=== PATIENT | female | born 1950 | race Caucasian/White ===

== ENCOUNTER 2016-10-24 20:33 | Emergency (ER) | payer MEDICAID, OTHER ==
[~2016-10-24] VITALS: Ht 152.4 cm; Wt 63.0 kg
[~2016-10-24 20:33] MED LIST: AZIT250T94 PO
[2016-10-24 20:52] VITALS: Ht 152.4 cm; Wt 63.0 kg
[2016-10-25] MEDS ORDERED: CARB15DR50 BOTH EARS (02:40)
--- NOTE | 2016-10-25 02:40 | ERD ---
ER Documentation Chief Complaint Date/Time DATE: 10/24/16 Chief Complaint Cerumen impaction HPI The patient is a 66-year-old female who presents to the Emergency Department with complaint of cerumen impaction. The patient reports that her symptoms began approximately one week ago, with onset of mildly decreased hearing to the right ear. Since, she has developed somewhat similar symptoms to the left ear as well. She notes that she has experienced similar symptoms in the past, at which time evaluation revealed cerumen impaction for which she needed ear irrigation. She denies any foreign body insertion into the ears. Denies any otorrhea or bloody discharge. Denies recent swimming. Denies rhinorrhea, nasal congestion, sore throat, cough, neck pain, neck stiffness, fevers, sweats, chills or any other complaints at this time. ROS All systems reviewed and are negative except as per history of present illness. Medications Home Meds Active Scripts Carbamide Peroxide* (Debrox*) 6.5% - 15 Ml Drops, 10 DROP BOTH EARS BID for 5 Days, BOTTLE Prov:EULA LANTIGUA PA-C 10/25/16 Azithromycin* (Zithromax*) 250 Mg Tablet, 250 MG PO DAILY for 4 Days, TAB Prov:DIANELYS SILVA MD 03/24/15 Allergies Allergies: Coded Allergies: No Known Allergy (Unverified , 07/08/14) PMhx/Soc History of Surgery: No Anesthesia Reaction: No Hx Neurological Disorder: No Hx Respiratory Disorders: No Hx Cardiac Disorders: No Hx Psychiatric Problems: No Hx Miscellaneous Medical Probl: No Hx Alcohol Use: No Hx Substance Use: No Hx Tobacco Use: No Physical Exam Vitals Vital Signs Date Time Temp Pulse Resp B/P Pulse Ox O2 Delivery O2 Flow Rate FiO2 10/25/16 03:08 97.8 58 18 98 Room Air 10/24/16 20:52 98.0 68 17 146/72 98 Physical Exam Const: Well-developed, well-nourished, in no acute distress. Head: Atraumatic. Normocephalic. Eyes: Normal Conjunctiva ENT: Normal External Ears, Nose and Mouth. Cerumen impaction bilaterally. No tenderness upon palpation or manipulation of external ear/tragus/pinna bilaterally. No mastoid tenderness. No otorrhea or bloody discharge. Neck: Supple. Full range of motion. Resp: Normal respiratory effort. Cardio: Normal peripheral perfusion. Skin: No petechiae or rashes Ext: No clubbing, cyanosis, or edema Neur: Awake and alert Psych: Cooperative. Appropriate. Procedures/MDM PROCEDURE: EAR IRRIGATION INDICATION: Cerumen Impaction CONSENT: Consent was obtained from the patient prior to the procedure. Indications, risks, and benefits were explained at length. PROCEDURE SUMMARY: A timeout protocol was performed prior to initiating the procedure. Right/Left ear irrigated with lukewarm water and hydrogen peroxide. Multiple large pieces of brown cerumen irrigated. Tympanic membranes noted to be within normal limits on reevaluation. The patient tolerated the procedure well without complications. Standard post- procedure care was explained and return precautions were given. MEDICAL DECISION MAKING: This is a 66-year-old [facility] patient presenting to the emergency department with complaint of decreased hearing to the ears. On otoscopic evaluation, cerumen impaction was noted. Patient underwent ear irrigation, with multiple pieces or cerumen removed. Upon re-evaluation, the patient's external auditory canal was clear, and there was no erythema or bulging of the tympanic membranes noted. No discharge, bleeding, erythema or swelling of the external auditory canal. Hearing back at baseline, and patient reports complete relief. Standard post-procedure care was explained to the patient at length. There is no clinical evidence of otitis media, otitis externa, cholesteatoma, malignant otitis, mastoiditis, tympanic membrane perforation or any other emergent medical condition. At this time the patient in stable condition with no further complaints and therefore can be discharged home with prescription for Debrox drops and given strict return precautions for signs of worsening or deteriorating condition. She is advised to follow up with a primary medical provider in 2-3 days for re-evaluation and further management, or to return to the ER sooner for any new or worsening symptoms. I shared my medical decision making and plan with the patient at length and in great detail and the patient verbally understands and agrees with the plan for further observation and care as an outpatient. At the time of discharge all questions were answered. Departure Diagnosis: Primary Impression: Cerumen impaction Laterality: bilateral Qualified Code: H61.23 - Bilateral impacted cerumen Condition: Stable Patient Instructions: Cerumen Impaction, Home Care Additional Instructions: Call your primary care doctor TOMORROW for an appointment during the next 2-3 days.See the doctor sooner or return here if your condition worsens before your appointment time. EULA LANTIGUA PA-C Oct 25, 2016 02:40
[2016-10-25 03:08] VITALS: PULSE 58; RESP 18; TEMP 97.8
== END 2016-10-25 03:10 | disposition home or self-care (01) ==
LOC: FTE 20:33
DX: H61.23 Impacted cerumen, bilateral (principal)
CPT/HCPCS: 69209; Z7502